=== PATIENT | female | born 1975 | race African-American/Black ===

== ENCOUNTER → 2017-05-26 | Outpatient (CLI) | payer BC ==
[~2017-05-26] MED LIST: ORTHO-CYCLEN 281 EA PO
--- NOTE | ~2017-05-26 | CR63 ---
[facility] A Service of [facility] RADIOLOGY TEXT RESULTS PATIENT: LY SHEPARD LOCATION: [facility] : 77 UNIT #: [id number] AGE: [address]: Kayla Rubio SEX: F ORDER DR: [id number] [facility] [address] [place], [place] [address] [id number] O MR#: [id number] Acc #: [id number] NAME: LY SHEPARD : 1975 SEX: F STUDY DATE/TIME: 05/26/2017 15:21 UNIT: [facility] ROOM: STUDY DESCRIPTION: CR Chest 2 View Attending Physician: Kayla Rubio Referring Physician: Kayla Rubio Ordering Physician: Kayla Schaefer A.P.R.N. Primary Care Physician: [facility] MEDICAL IMAGING REPORT This report is preliminary unless electronic signature is present EXAM Chest, 05/26/2017 HISTORY 42-year-old female unexplained cough x1 month. COMPARISON Portable chest 12/28/2014, two-view chest 12/16/2014. FINDINGS PA and lateral chest views show normal heart size. Aorta and hilar structures are preserved. Lungs are expanded and clear. Moderate thoracic scoliosis is present. The left hemidiaphragm is somewhat indistinct however I suspect this is only mild pleural response. Lap-Band is in place. IMPRESSION Moderate thoracic scoliosis. No acute chest finding. Dictated by... Alo Garduno M.D. THIS IS AN ELECTRONICALLY VERIFIED REPORT Alo Garduno M.D. at 05/27/2017 8:05 AM VINICIO/aneesh TD: 05/27/2017 03:35 JOB #: [id number] MEDICAL IMAGING REPORT Page 1 of 1 COPY
== END | disposition home or self-care (01) ==
LOC: CRAD 15:02
DX: R05 Cough (principal); M41.9 Scoliosis, unspecified
CPT/HCPCS: 71020